=== PATIENT | male | born 1975 | race Caucasian/White ===

== ENCOUNTER 2024-12-11 11:06 | Emergency (ER) | payer SELFPAY ==
[~2024-12-11] VITALS: Ht 170.2 cm; Wt 82.0 kg
[2024-12-11 11:11] VITALS: O2SAT 100
[2024-12-11] MEDS: LEVETIRACETAM 500MG PREMIX 100 ML IV ONE ×2 (11:45→12:55)
[2024-12-11] MEDS: TETANUS, DIPHTHERIA, PERTUSSIS VAC/PF 0.5ML (>10YR OLD) IM ONE (11:47)
[2024-12-11 12:22] LABS: BASOPHILS % 0.7 % (0.0-2.0); EOSINOPHILS % 0.2 % (0.0-5.0); HEMATOCRIT. 47.5 % (42.0-52.0); HEMOGLOBIN. 16.1 g/dL (14.0-18.0); LYMPHOCYTES % 9.5 % (20.0-50.0); MEAN CORPUSCULAR HEMOGLOBIN 29.7 pg (28.0-32.0); MEAN CORPUSCULAR HGB CONC 33.9 g/dL (31.0-37.0); MEAN CORPUSCULAR VOLUME 87.7 fL (80.0-94.0); MONOCYTES % 3.6 % (2.0-8.0); PLATELET 193 x1000/uL (130-400); RED BLOOD CELL COUNT 5.41 mill/uL (4.7-6.1); RED CELL DISTRIBUTION WIDTH 13.5 % (11.6-14.6); WHITE BLOOD COUNT 7.8 x1000/uL (4.5-11.0)
[2024-12-11 12:34] LABS: CARBON DIOXIDE 19 mEq/L (21-32); CHLORIDE 111 mEq/L (98-107); POTASSIUM 3.3 mEq/L (3.5-5.1); SODIUM 145 mEq/L (136-145)
[2024-12-11 12:35] LABS: CALCIUM 9.4 mg/dL (8.7-10.4)
[2024-12-11 12:39] LABS: CREATININE 1.1 mg/dL (0.6-1.3); GLUCOSE 114 mg/dL (70-105)
[2024-12-11 12:40] LABS: UREA NITROGEN BLOOD 14 mg/dL (9-23)
[2024-12-11 12:41] LABS: ALANINE AMINOTRANSFERASE 103 IU/L (10-49); ALBUMIN 4.5 g/dL (3.2-4.8); ASPARTATE AMINOTRANSFERASE 65 IU/L (<34)
[2024-12-11 12:42] LABS: BILIRUBIN TOTAL 0.6 mg/dL (0.1-1.0); PROTEIN TOTAL 7.2 g/dL (6.0-8.3)
[2024-12-11 13:04] VITALS: BP 133/90; PULSE 81; RESP 17; TEMP 36.6; O2SAT 98
== END 2024-12-11 13:17 | disposition home or self-care (01) ==
LOC: ER 12:59
DX: S00.31XA Abrasion of nose, initial encounter (principal); R56.9 Unspecified convulsions; X58.XXXA Exposure to other specified factors, initial encounter; Y93.89 Activity, other specified; Y92.89 Other specified places as the place of occurrence of the external cause; Y99.8 Other external cause status
CPT/HCPCS: 80053; 85025; 36415; 70450; 90715; 93005; 90471; 96365; 96366; 99285; J1953; Z7610